=== PATIENT | male | born 1985 | race Caucasian/White ===

== ENCOUNTER → 2018-07-09 | Outpatient (CLI) | payer OTHER ==
[2016-02-19 19:18] VITALS: BP 119/79
--- NOTE | 2018-07-09 13:06 | KCIC ---
EXAM: Right ankle and foot, 3 views. HISTORY: Pain. Swelling. COMPARISON: None. FINDINGS: 3 views of the right ankle and foot are obtained. There is no fracture, dislocation or subluxation. The ankle mortise is intact. There is no osteochondral lesion. There is an accessory navicular bone, a normal variant. IMPRESSION: No acute osseous finding. Electronically signed by: Evelyn Brush MD (07/09/2018 1:02 PM) [place] [id number]
--- NOTE | 2018-07-09 13:06 | KCIC ---
EXAM: Right ankle and foot, 3 views. HISTORY: Pain. Swelling. COMPARISON: None. FINDINGS: 3 views of the right ankle and foot are obtained. There is no fracture, dislocation or subluxation. The ankle mortise is intact. There is no osteochondral lesion. There is an accessory navicular bone, a normal variant. IMPRESSION: No acute osseous finding. Electronically signed by: Evelyn Brush MD (07/09/2018 1:02 PM) [place] [id number]
== END | disposition home or self-care (01) ==
LOC: KCIC 09:44
PROVIDERS: ATTEND Family Medicine
DX: M79.671 Pain in right foot (principal); M10.9 Gout, unspecified
CPT/HCPCS: 73610; 73630